=== PATIENT | male | born 1980 | race Two or more races ===

== ENCOUNTER 2017-08-24 18:20 | Emergency (ER) | payer SELFPAY | END 2017-08-24 19:09 | disposition left against medical advice (07) | LOC: EMS 18:22 | DX: R10.30 Lower abdominal pain, unspecified (principal); Z53.21 Procedure and treatment not carried out due to patient leaving prior to being seen by health care provider ==

== ENCOUNTER 2020-08-05 20:16 | Emergency (ER) | payer OTHER ==
[~2020-08-05] VITALS: Ht 167.6 cm; Wt 99.1 kg
[2020-08-05 22:00] VITALS: BP 115/59
[2020-08-05] MEDS ORDERED: PredniSONE 20 MG TABLET PO ONE (22:30)
[2020-08-05] MEDS ORDERED: ACYCLOVIR 200 MG CAPSULE PO ONE (22:30)
== END 2020-08-05 22:49 | disposition home or self-care (01) ==
LOC: EMS 20:19
DX: B02.9 Zoster without complications (principal); F32.9 Major depressive disorder, single episode, unspecified; F17.210 Nicotine dependence, cigarettes, uncomplicated
CPT/HCPCS: 99283; J7512

== ENCOUNTER 2021-01-12 19:03 | Emergency (ER) | payer MEDICAID | END 2021-01-12 20:10 | disposition left against medical advice (07) | LOC: EMS 19:05 | DX: R51.9 Headache, unspecified (principal); Z53.21 Procedure and treatment not carried out due to patient leaving prior to being seen by health care provider ==